=== PATIENT | male | born 1955 | race American Indian/Alaskan Native ===

== ENCOUNTER 2018-02-02 13:45 | Emergency (ER) | payer MEDICARE ==
[2018-02-02 14:08] VITALS: BP 165/84
== END 2018-02-02 20:22 | disposition left against medical advice (07) ==
LOC: ED 13:45
DX: K12.2 Cellulitis and abscess of mouth (principal); Z53.21 Procedure and treatment not carried out due to patient leaving prior to being seen by health care provider